=== PATIENT | male | born 1975 | race Caucasian/White ===

== ENCOUNTER 2017-05-17 14:26 | Emergency (ER) | payer OTHER ==
--- NOTE | 2017-05-17 15:03 | EDPHY ---
H & P Time Seen by Provider: 05/17/17 14:41 HPI/ROS: CHIEF COMPLAINT: Right shoulder injury HISTORY OF PRESENT ILLNESS: 42-year-old male presents to the emergency department by private vehicle complaining of isolated pain to his right shoulder. The patient was snowboarding at [place] and caught an edge and fell directly onto his right shoulder. He did not hit his head or lose consciousness. He denies a headache. Denies visual changes. Denies neck or back pain. Denies chest pain or difficulty breathing. Denies abdominal pain. He has pain in his shoulder specially with movement. Denies symptoms the left upper extremity or in his lower extremities bilaterally. REVIEW OF SYSTEMS: Constitutional: No fever, no chills. Eyes: No double or blurry vision. ENT: No sore throat. Respiratory: No cough, no shortness of breath. Cardiac: No chest pain. Gastrointestinal: No abdominal pain, vomiting or diarrhea. Genitourinary: No dysuria. Musculoskeletal: No neck or back pain. Skin: No rashes. Neurological: No headache. Past Medical/Surgical History: Anxiety Social History: Lives in [place], [place] Smoking Status: Never smoked Physical Exam: General Appearance: Alert, no distress. Mentating normally and answering questions appropriately. No visible signs of trauma to his head Eyes: Pupils equal and round. Extraocular motions are all intact. ENT: Mouth: Mucous membranes moist. Respiratory: No wheezing, rhonchi, or rales, lungs are clear to auscultation. Cardiovascular: Regular rate and rhythm. Gastrointestinal: Abdomen is soft and nontender, no masses, no rebound or guarding, bowel sounds normal. No CVA tenderness bilaterally. Neurological: Alert and oriented x 3, cranial nerves II through XII grossly intact Skin: Warm and dry, no rashes. Musculoskeletal: Nontender to palpate along the cervical, thoracic or lumbar spine. Neck is supple. Extremities: AC deformity to the right shoulder. Mild pain with palpation over the distal clavicle as well. No abrasion or puncture wound. No skin tenting. Normal sensation to light touch with normal 2 point discrimination. Normal and equal strength for the upper extremities bilaterally. Full range of motion of his right wrist and elbow. Full range of motion of the left upper extremity and lower extremities bilaterally. Psychiatric: Patient is oriented X 3, there is no agitation. Constitutional: Initial Vital Signs Temperature (C) 36.5 C 05/17/17 14:32 Heart Rate 93 05/17/17 14:32 Respiratory Rate 20 05/17/17 14:32 Blood Pressure 151/90 H 05/17/17 14:32 O2 Sat (%) 94 05/17/17 14:32 O2 Delivery Mode Room Air Allergies/Adverse Reactions: No Known Allergies Allergy (Unverified 05/17/17 14:32) Home Medications: Medication Instructions Recorded LAMOTRIGINE 05/17/17 LaMICtal 05/17/17 oxyCODONE/APAP 5/325 [Percocet 1 - 2 tab PO Q4-6PRN PRN #15 tab 05/17/17 5/325] Medical Decision Making - Diagnostics Imaging Results: Imaging Impressions Shoulder X-Ray 05/17/17 14:56 Impression: 1. Type III AC separation. 2. No acute fracture or dislocation. Imaging: I viewed and interpreted images myself Procedures: Patient was placed in a sling and examined post application in good placement with normal HOSPITAL PHARMACY DIRECTOR. ED Course/Re-evaluation: 42-year-old male presents to the emergency department with right shoulder injury. X-rays reveal grade 3 AC separation. Patient was placed in a sling and given orthopedic referral. Differential Diagnosis: Including but not limited to fracture, dislocation, contusion, sprain Departure - Departure Disposition: Home, Routine, Self-Care Clinical Impression: AC separation right shoulder Condition: Good Instructions: Acromioclavicular Separation (ED) Additional Instructions: Sling for comfort and support. Ibuprofen 600 mg every 8 hours as needed for pain. Percocet for severe pain as directed. Follow up with orthopedic surgeon this week to recheck. Referrals: Tha Rivera MD [Medical Doctor] - As per Instructions (Orthopedic surgeon on- call) Eduin Carlson MD [Medical Doctor] - As per Instructions (Orthopedic surgeon in [place]) Danielle Gutierrez MD [Medical Doctor] - As per Instructions (Orthopedic surgeon in [place]) Prescriptions: oxyCODONE/APAP 5/325 [Percocet 5/325] 1 - 2 tab PO Q4-6PRN PRN #15 tab PRN Reason: For Moderate To Severe Pain
[2017-05-17 16:23] VITALS: BP 138/74; PULSE 81; RESP 16; TEMP 98.1; O2SAT 98
== END 2017-05-17 16:23 | disposition home or self-care (01) ==
DX: S43.101A Unspecified dislocation of right acromioclavicular joint, initial encounter (principal); V00.311A Fall from snowboard, initial encounter; Y92.89 Other specified places as the place of occurrence of the external cause; Y93.23 Activity, snow (alpine) (downhill) skiing, snowboarding, sledding, tobogganing and snow tubing
CPT/HCPCS: A4565